=== PATIENT | male | born 1985 | race Caucasian/White ===

== ENCOUNTER 2018-10-31 02:13 | Observation (INO) | payer OTHER ==
[2018-10-31] MEDS: Sodium Chloride 0.9% 1,000 ML IV ONE ×2 (02:16→05:01)
[2018-10-31] MEDS ORDERED: Sodium Chloride 0.9% 2.5 ML Syringe FLUSH PRN (02:18)
[2018-10-31] MEDS ORDERED: Diphtheria,Pertussis(Acell),Tetanus Vaccine 0.5 ML Syringe IM ONE (02:18)
[2018-10-31] MEDS ORDERED: Sodium Chloride 0.9% 10 ML Syringe FLUSH PRN (02:18)
[2018-10-31] MEDS ORDERED: Lidocaine 1% with EPINEPHrine 1:100,000 20 ML MDV INJECT ONE (02:18)
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
[2018-10-31 02:37] LABS: CHLORIDE,CL 106 mmol/L (98-107); SODIUM,NA 145 mmol/L (136-148)
[2018-10-31] MEDS ORDERED: Bacitracin Oint 1 GM U/D Packet TOP ONE (03:28)
--- NOTE | 2018-10-31 03:32 | CR ---
INDICATION: Chest pain COMPARISON: None available. FINDINGS: An erect single view of the chest was obtained at 0227 hours. The lungs are clear. No focal or diffuse infiltrates are present. The heart is normal in size. The mediastinum is normal in appearance. The osseous structures are normal in appearance for the patient`s age. IMPRESSION: Normal chest single view. Dictated by Jeffery Greco MD @ Oct 31 2018 3:29AM Signed by Dr. Jeffery Greco @ Oct 31 2018 3:30AM
--- NOTE | 2018-10-31 03:34 | CT ---
INDICATION: Pain COMPARISON: None available TECHNIQUE: CT examination of the cervical spine is performed with spiral technique without contrast using spiral technique. 2 mm thick axial, sagittal and coronal reconstructions were made. Please note that all CT scans at this facility use dose modulation, iterative reconstruction, and/or weight-based dosing when appropriate to reduce radiation dose to as low as reasonably achievable. FINDINGS: : There is no sign of fracture or subluxation. The cervical vertebral bodies and intervertebral discs are normal in height and are in anatomic alignment. There is no sign of prevertebral soft tissue swelling. The airway structures are normal in appearance. The visualized skull base is normal in appearance. Brain detail is extremely limited by the use of bone technique, but no gross abnormality is seen. The apices of the lungs are clear. IMPRESSION: Normal CT of the cervical spine with no sign of acute injury. Please note that all CT scans at this facility use dose modulation, iterative reconstruction, and/or weight-based dosing when appropriate to reduce radiation dose to as low as reasonably achievable. Dictated by Jeffery Greco MD @ Oct 31 2018 3:30AM Signed by Dr. Jeffery Greco @ Oct 31 2018 3:32AM
--- NOTE | 2018-10-31 03:42 | CT ---
INDICATION: Pain COMPARISON: None available. TECHNIQUE: CT examination of the head was performed with 3 mm thick axial sections without intravenous contrast. Images were obtained from the vertex of the skull through the skull base, and I examined the images with the brain and bone windows. Please note that all CT scans at this facility use dose modulation, iterative reconstruction, and/or weight-based dosing when appropriate to reduce radiation dose to as low as reasonably achievable. FINDINGS: : The brain is normal in appearance for the patient`s age on today`s study, with no sign of mass lesion, mass effect, hemorrhage, or edema. The ventricles and sulci are normal in appearance for the patient`s age. There is an acute right inferior orbital blowout fracture with moderate depression of the right orbital floor and mild herniation of the swollen right inferior rectus muscle inferiorly. There is a moderate amount of retro-orbital gas indicating acute injury. A mild air-fluid level is seen in the right maxillary sinus. There is no sign of acute injury to the left orbit, with intact appearance of the orbital rims. There is an old inferior-medial blowout fracture. This has the appearance of an old fracture, without any fluid or edema in the left ethmoid air cells. There is a small amount of free fluid in the left maxillary sinus suggesting acute sinusitis, most likely from dental disease, with an abscess seen arising from the distal lingual root of the left 1st maxillary molar, tooth number 14. A fracture of the left maxillary sinus cannot be entirely excluded.. The rest of the visualized portions of the paranasal sinuses and mastoids are clear. There are acute, comminuted bilateral nasal fractures, with moderate displacement of the distal fracture fragments towards the left. There is moderate nasal soft tissue swelling with mild amounts of gas in the soft tissues. The osseous structures are otherwise normal in their appearance with no sign of abnormality in the skull base or calvarium. IMPRESSION: No sign of acute injury to the brain, with no sign of closed head injury. Acute, comminuted, prominently displaced nasal fractures, with the nasal fracture fragments strongly deviated towards the left. Acute, moderately displaced right inferior orbital blowout fracture with herniation of the moderately contused right inferior rectus muscle into the orbit. Mild air-fluid level in the right maxillary sinus consistent with acute fracture. Small air-fluid level in the left maxillary sinus most likely the result of dental disease, with a periapical abscess of tooth 14. Old left inferior-medial orbital blowout fracture. Please note that all CT scans at this facility use dose modulation, iterative reconstruction, and/or weight-based dosing when appropriate to reduce radiation dose to as low as reasonably achievable. Dictated by Jeffery Greco MD @ Oct 31 2018 3:32AM Signed by Dr. Jeffery Greco @ Oct 31 2018 3:41AM
[2018-10-31] MEDS ORDERED: LORazepam 2 MG/ML SDV ONE (03:49)
--- NOTE | 2018-10-31 03:51 | CT ---
INDICATION: Pain COMPARISON: CT of the head from today TECHNIQUE: CT examination of the facial bones is performed without contrast enhancement using spiral technique. 2-mm thick axial, coronal and sagittal sections were obtained from the data. Please note that all CT scans at this facility use dose modulation, iterative reconstruction, and/or weight-based dosing when appropriate to reduce radiation dose to as low as reasonably achievable. FINDINGS: There are acute, comminuted, bilateral nasal fractures with prominent leftward angulation of the nasal fracture fragments. B anterior nasal septum is fractured superiorly. The maxillary spine is intact. There is moderate right greater than left nasal soft tissue swelling with small amounts of gas in the soft tissues. There is an acute, moderately displaced right inferior orbital blowout fracture. The moderately thickened, contused right inferior rectus muscle is herniated into the maxillary sinus, but does not appear to be entrapped. There is a moderate amount of gas in the retro-orbital space on the right, between the optic nerve and the lateral rectus muscle. There is no sign of a large intraorbital hematoma. There is an old inferior-medial left orbital blowout fracture with fat herniating into the inferior ethmoid air cells. This appears to be an old fracture since there is no fluid in the adjacent ethmoid air cells. The left orbital floor is intact. The left intraorbital soft tissue structures are normal in appearance. There is no sign of fracture of either of the orbital rims. There is a mild amount of free fluid in the right maxillary sinus related to the acute right orbital floor fracture. There is a small amount of fluid in the left maxillary sinus which appears to be the result of a periapical abscess arising from the lingual root of tooth 14, the left 1st maxillary molar. There is a small defect in the bone surrounding the abscess extending into the left maxillary sinus. There is extensive carious destruction of the crown of this tooth as well. There is no sign of additional facial fracture on today`s study. The zygomatic arches, maxillae, and mandible are normal in appearance. There is moderate opacification of the mid and posterior right ethmoid air cells. The rest of the paranasal sinuses are clear. The mastoids are clear. The airway structures are normal in appearance. IMPRESSION: Acute, comminuted, prominently displaced fractures of the nasal bone bilaterally. Fracture of the anterior-superior nasal septum. Acute right inferior orbital blowout fracture with contusion of the right inferior rectus muscle which is mildly herniated into the maxillary sinus. No sign of entrapment of the inferior rectus muscle. No sign of additional acute orbital fracture. Old inferior-medial left orbital blowout fracture. Periapical abscess arising from the roots of tooth 14, the left 1st maxillary molar. Please note that all CT scans at this facility use dose modulation, iterative reconstruction, and/or weight-based dosing when appropriate to reduce radiation dose to as low as reasonably achievable. Dictated by Jeffery Greco MD @ Oct 31 2018 3:41AM Signed by Dr. Jeffery Greco @ Oct 31 2018 3:49AM
[2018-10-31] MEDS ORDERED: ceFAZolin 2 GM in Premix Bag 1 BAG IV ONE (04:07)
[2018-10-31] MEDS ORDERED: LORazepam 2 MG/ML SDV IVPUSH ONE (04:07)
[2018-10-31] MEDS: Lactated Ringers 1,000 ML IV SCH ×3 (04:40→20:32)
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
[2018-10-31] MEDS ORDERED: Ondansetron 4 MG/2 ML SDV IVPUSH PRN (05:07)
[2018-10-31] MEDS ORDERED: diphenhydrAMINE 50 MG/ML SDV IVPUSH PRN (05:07)
[2018-10-31] MEDS ORDERED: Acetaminophen 325 MG Tab PO PRN (05:07)
[2018-10-31] MEDS ORDERED: Lactated Ringers 1,000 ML IV SCH (05:15)
[2018-10-31] MEDS ORDERED: LORazepam 2 MG/ML SDV IV SCH (05:15)
[2018-10-31] MEDS: Acetaminophen/HYDROcodone 325-5 MG Tab PO PRN ×3 (10:46→19:21)
[2018-10-31] MEDS: Multivitamin Tab PO SCH (10:49)
[2018-10-31] MEDS ORDERED: Sodium Chloride 0.65% Nasal Spray 45 ML Bottle NAS PRN (14:54)
[2018-10-31] MEDS ORDERED: Carboxymethylcellulose Sodium 0.5% Ophth Soln 0.4 ML UD Box of 30 EYERT PRN (14:56)
[2018-10-31] MEDS ORDERED: Cephalexin 500 MG Cap PO SCH (15:00)
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
[2018-10-31] MEDS: Bacitracin Oint 28.35 GM Tube TOP SCH ×2 (16:09→20:28)
[2018-10-31] MEDS: Clindamycin HCl 150 MG Cap PO SCH ×2 (16:11→20:28)
[2018-11-01] MEDS: Clindamycin HCl 150 MG Cap PO SCH ×2 (03:48→08:34)
[2018-11-01] MEDS: Acetaminophen/HYDROcodone 325-5 MG Tab PO PRN ×2 (03:49→08:34)
[2018-11-01] MEDS: Lactated Ringers 1,000 ML IV SCH (05:03)
[2018-11-01] MEDS: Multivitamin Tab PO SCH (08:34)
[2018-11-01] MEDS: Bacitracin Oint 28.35 GM Tube TOP SCH (08:37)
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
== END 2018-11-01 13:19 | disposition home or self-care (01) ==
LOC: MW.ED 02:13 → MW.MS 04:35
PROVIDERS: ADMIT Surgery; ATTEND Surgery
DX: S02.31XA Fracture of orbital floor, right side, initial encounter for closed fracture (principal); S09.8XXA Other specified injuries of head, initial encounter; S09.93XA Unspecified injury of face, initial encounter; S01.81XA Laceration without foreign body of other part of head, initial encounter; S06.9X9A Unspecified intracranial injury with loss of consciousness of unspecified duration, initial encounter; S02.2XXA Fracture of nasal bones, initial encounter for closed fracture; F10.929 Alcohol use, unspecified with intoxication, unspecified; Y90.8 Blood alcohol level of 240 mg/100 ml or more; K04.7 Periapical abscess without sinus; Y04.0XXA Assault by unarmed brawl or fight, initial encounter
CPT/HCPCS: 36415; 70450; 70486; 71045; 72125; 80053; 80305; 81001; 83690; 85025; 85610; 90471; 90715; 96361; 96365; 96375; 99285; A9270; G0480; J0690; J2060; J7040; J7120; G0378

== ENCOUNTER 2018-11-03 06:27 | Day surgery (SDC) | payer OTHER ==
[2018-11-03] MEDS ORDERED: Lactated Ringers 1,000 ML IV SCH ×2 (07:00→08:15)
[2018-11-03] MEDS ORDERED: Ondansetron 4 MG/2 ML SDV ONE ×2 (07:14→09:20)
[2018-11-03] MEDS ORDERED: Midazolam 1 MG/ML 2 ML SDV ONE ×2 (07:14→09:21)
[2018-11-03] MEDS ORDERED: Lidocaine 2% 5 ML SDV ONE ×2 (07:14→09:20)
[2018-11-03] MEDS ORDERED: Propofol 200 MG/20 ML SDV ONE ×2 (07:14→09:21)
[2018-11-03] MEDS ORDERED: Succinylcholine 200 MG/10 ML MDV ONE (07:14)
[2018-11-03] MEDS ORDERED: Rocuronium 10 MG/ML 10 ML Syringe ONE ×2 (07:14→09:20)
[2018-11-03] MEDS ORDERED: fentaNYL 250 MCG/5 ML SDV ONE ×3 (07:14→09:21)
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
[2018-11-03] MEDS ORDERED: Bupivacaine 0.25%/EPINEPHrine 1:200,000 10 ML SDV INJECT ONE (08:04)
[2018-11-03] MEDS ORDERED: Clindamycin Phosphate in D5W 600 MG in Premix Bag 1 BAG IV ONE ×2 (08:04)
[2018-11-03] MEDS ORDERED: Oxymetazoline 0.05% Nasal Spray 15 ML Bottle ONE (08:40)
[2018-11-03] MEDS ORDERED: Bupivacaine 0.25%/EPINEPHrine 1:200,000 10 ML SDV ONE ×2 (08:46→08:58)
[2018-11-03] MEDS ORDERED: Glycopyrrolate 0.2 MG/ML SDV ONE ×3 (09:05→09:20)
[2018-11-03] MEDS ORDERED: Neostigmine Methylsulfate 1 MG/ML 5 ML Syringe ONE (09:20)
[2018-11-03] MEDS ORDERED: Albuterol 0.083% 2.5 MG/3 ML Neb Soln NEB PRN (09:54)
[2018-11-03] MEDS ORDERED: Naloxone 0.4 MG/ML Syringe IVPUSH PRN (09:54)
[2018-11-03] MEDS ORDERED: Atropine 1 MG/ML SDV IVPUSH PRN ×2 (09:54)
[2018-11-03] MEDS ORDERED: EPINEPHrine 1 MG/1 ML Amp IVPUSH PRN (09:54)
[2018-11-03] MEDS ORDERED: fentaNYL 100 MCG/2 ML SDV IVPUSH PRN (09:54)
[2018-11-03] MEDS ORDERED: 50% Dextrose in Water 50 ML Syringe IVPUSH PRN (09:54)
[2018-11-03] MEDS ORDERED: Haloperidol Lactate 5 MG/ML SDV IM ONE (09:59)
[2018-11-03] MEDS ORDERED: Acetaminophen 1,000 MG in Premix Bag 1 BAG IV ONE (10:40)
--- NOTE | 2018-11-03 12:17 | PCM.POSTAN ---
POST ANESTHESIA ASSESSMENT - MENTAL STATUS Mental Status: Alert, Oriented - RESPIRATORY Respiratory Status: Respiratory Rate WNL, Airway Patent, O2 Saturation Stable - CARDIOVASCULAR CV Status: Pulse Rate WNL, Blood Pressure Stable - GASTROINTESTINAL GI Status: No Symptoms - POST OP HYDRATION Hydration Status: Adequate & Stable - OBSERVATIONS Free Text/Narrative:: required haldol im in phase 1 for agitation, combativeness
--- NOTE | 2018-11-03 13:01 | PCM48HPAN ---
Post Anesthesia Note - EVALUATION WITHIN 48HRS OF ANESTHETIC Vital Signs in Normal Range: Yes Patient Participated in Evaluation: Yes Respiratory Function Stable: Yes Airway Patent: Yes Cardiovascular Function Stable: Yes Hydration Status Stable: Yes Pain Control Satisfactory: Yes Nausea and Vomiting Control Satisfactory: Yes Mental Status Recovered: Yes Resp Rate: 16
--- NOTE | 2018-11-08 14:40 | PCM.OPNOTE ---
- General Post-Op/Procedure Note Date of Surgery/Procedure: 11/03/18 Operative Procedure(s): reduction of bilateral nasal bone and septal fractures closed with internal and external nasal splints. Pre Op Diagnosis: bilateral nasal bone fractues and septal fracture Post-Op Diagnosis: Same Anesthesia Technique: Local, MAC Primary Surgeon: Vee Rod Stereoplotter Operator: Ysabel Lee Complications: None Condition: Good Free Text/Narrative:: [id number]
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
== END 2018-11-03 12:37 | disposition home or self-care (01) ==
LOC: MW.SDS 06:27
PROVIDERS: ATTEND Plastic Surgery
DX: S02.2XXA Fracture of nasal bones, initial encounter for closed fracture (principal); S02.80XA Fracture of other specified skull and facial bones, unspecified side, initial encounter for closed fracture; F10.129 Alcohol abuse with intoxication, unspecified; F41.9 Anxiety disorder, unspecified; F32.9 Major depressive disorder, single episode, unspecified; Y09 Assault by unspecified means
CPT/HCPCS: 21320; 21337; 64999; A9270; J0131; J0330; J2001; J2250; J2405; J2704; J3010; J3490; J7120

== ENCOUNTER 2018-11-06 20:42 | Emergency (ER) | payer OTHER ==
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
== END 2018-11-06 21:35 | disposition home or self-care (01) ==
LOC: MW.ED 20:42
DX: S02.2XXD Fracture of nasal bones, subsequent encounter for fracture with routine healing (principal); Z79.899 Other long term (current) drug therapy; Y04.8XXD Assault by other bodily force, subsequent encounter
CPT/HCPCS: 99282

== ENCOUNTER 2022-01-31 22:43 | Emergency (ER) | payer SELFPAY | END 2022-01-31 23:31 | LOC: MW.ED 22:43 | DX: S09.90XA Unspecified injury of head, initial encounter (principal); X58.XXXA Exposure to other specified factors, initial encounter | CPT/HCPCS: 99283 ==